=== PATIENT | female | born 1985 | race Caucasian/White ===

== ENCOUNTER 2020-02-06 12:39 | Emergency (ER) | payer OTHER ==
[~2020-02-06] VITALS: Ht 160 cm; Wt 68.0 kg
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
[2020-02-06] MEDS ORDERED: HYDR-3164 PO (16:22)
[2020-02-06] MEDS ORDERED: IBUP-1007 PO (16:22)
[2020-02-06] MEDS ORDERED: ORPH100T PO (16:22)
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
[2020-02-06 16:49] VITALS: BP 129/76
== END 2020-02-06 16:50 | disposition home or self-care (01) ==
LOC: ER 12:39
DX: S62.625A Displaced fracture of middle phalanx of left ring finger, initial encounter for closed fracture (principal); S09.8XXA Other specified injuries of head, initial encounter; M25.561 Pain in right knee; R42 Dizziness and giddiness; R11.0 Nausea; R55 Syncope and collapse; F10.10 Alcohol abuse, uncomplicated; Z88.8 Allergy status to other drugs, medicaments and biological substances; Z90.89 Acquired absence of other organs; Z98.890 Other specified postprocedural states; V98.8XXA Other specified transport accidents, initial encounter; Y93.89 Activity, other specified; Y92.89 Other specified places as the place of occurrence of the external cause; Y99.8 Other external cause status
CPT/HCPCS: 29505; 70450; 72125; 73130; 73564; 99285